=== PATIENT | female | born 1975 | race Caucasian/White ===

== ENCOUNTER 2016-07-06 13:11 | Emergency (ER) | payer MEDICARE, OTHER ==
[2016-07-06 13:54] LABS: BLOOD UREA NITROGEN 11 mg/dL (7-18); CALCIUM 8.6 mg/dL (8.7-10.7); CARBON DIOXIDE 22 mmol/L (21-32); CREATININE 0.7 mg/dL (0.6-1.3); GLUCOSE,RANDOM 86 mg/dL (70-99); POTASSIUM 4.1 mmol/L (3.5-5.1); SODIUM 141 mmol/L (136-145)
== END 2016-07-06 15:38 | disposition home or self-care (01) ==
LOC: ER 13:11
PROVIDERS: General Practice
DX: I80.3 Phlebitis and thrombophlebitis of lower extremities, unspecified (principal); M79.672 Pain in left foot; F17.210 Nicotine dependence, cigarettes, uncomplicated
CPT/HCPCS: 36415; 73630; 80048; 85379; 96372; 99283; 99283-25